=== PATIENT | male | born 1955 | race Caucasian/White ===

== ENCOUNTER 2019-02-02 10:30 | Inpatient (IN) ==
[2019-02-02] MEDS ORDERED: IOPAMIDOL 100 ML BOTTLE IV ONE (10:31)
--- NOTE | 2019-02-02 10:47 | Emergency Department Note ---
SOB HPI - General Chief Complaint: Shortness of Breath/Dyspnea Stated Complaint: Low O2 sats, after procedure Time Seen by Provider: 02/02/19 10:42 Source: patient Mode of arrival: ambulatory Limitations: no limitations - History of Present Illness This gentleman came out of outpatient procedure after having EGD for "stretching his esophagus" and had difficulties with keeping his oxygen at proper levels. He was reported at 90% even on 3 L. He does not typically use oxygen at home. Upon arrival here he was 88% on 3 L. He has felt short of breath for about a week. He is quite sedentary generally. There is been no difference in his limited activity. During his procedure he had Versed and propofol. The reason he is so sedentary is because he has chronic low back pain from previous injury. He does take 3 hydrocodone, 7.5 mg each, 3 times a day. REVIEW OF SYSTEMS: Denies fever, chills. Has some intermittent night sweats which he relates to the pain but has not had any increase in this. No chest pain No cough or wheezing. No nausea or vomiting or abdominal pain. Has chronic low back pain. Has general weakness but this is chronic and no new change. No dizziness. Has had some imbalance for a week. Denies anxiety. Has had depression in the past and continues to take paroxetine but is not sure that he needs it. - Related Data Home Medications Medication Instructions Recorded Confirmed aspirin 81 mg tablet,delayed 81 mg PO QDAY tab 07/05/15 09/04/18 release multivitamin tablet 1 tab PO QDAY tab 07/05/15 09/04/18 Ibuprofen [Motrin] 600 mg PO DAILY 11/01/15 09/04/18 Magnesium Oxide [Magnesium] 400 mg PO DAILY 11/01/15 09/04/18 Niacin 250 mg PO HS 11/01/15 09/04/18 Empagliflozin [Jardiance] 25 mg PO HS 07/13/18 09/04/18 metoprolol tartrate 50 mg tablet 50 mg PO BID 07/13/18 09/04/18 Previous Rx's Medication Instructions Recorded nitroglycerin 0.4 mg sublingual 0.4 mg SUBLINGUAL .COMPLEX PRN #25 10/18/16 tablet tab Monthly Blood Draws #1 each 01/20/17 Permanent Disabled Parking #2 each 03/27/17 metformin ER 500 mg 1,000 mg PO BID #360 tab 11/18/17 tablet,extended release 24hr omeprazole 40 mg capsule,delayed 40 mg PO QDAY #90 cap 01/27/18 release valsartan 320 1 tab PO QDAY #30 tab 01/27/18 mg-hydrochlorothiazide 25 mg tablet testosterone cypionate 200 mg/mL 150 mg IM QWEEK #10 ml 04/02/18 intramuscular oil trazodone 150 mg tablet 150 mg PO QDAY #90 tab 07/17/18 simvastatin 40 mg tablet 40 mg PO QPM #90 tab 07/30/18 pregabalin 75 mg capsule 75 mg PO BID #60 cap 09/17/18 paroxetine 20 mg tablet 20 mg PO QDAY #30 tab 11/09/18 hydrocodone 7.5 mg-acetaminophen 2 tab PO Q4H PRN #300 tab 11/12/18 325 mg tablet Allergies Allergy/AdvReac Type Severity Reaction Status Date / Time iodine [IODINE] AdvReac Intermediate FELT LIKE Verified 02/02/19 10:33 HE WAS BOILING, N/V Penicillins AdvReac Intermediate SWELLING, Verified 02/02/19 10:33 BRUISING morphine AdvReac Mild Nausea Verified 02/02/19 10:33 Bee Stings AdvReac Mild Nausea Uncoded 02/02/19 09:37 Past Medical History - Past Medical History [facility] Narrative: Medical History (Last Updated 02/02/19 @ 10:48 by Dae Chow DO) CAD (coronary artery disease) (Chronic) Heart disease (Chronic) Diabetes mellitus, type II (Chronic) Hypertension, essential (Chronic) Hyperlipidemia (Chronic) Obesity (Chronic) Hemochromatosis (Chronic 03/02/13) Bilateral shoulder pain (Chronic) Chronic pain due to trauma (Chronic) Testosterone deficiency in male (Chronic) Spondylolysis of sacral region (Chronic) Spinal stenosis (Chronic) Scoliosis (Chronic) Radiculopathy, lumbosacral or thoracic (Chronic) Duodenitis without hemorrhage (Chronic 06/13/14) Dysmetabolic syndrome X (Chronic) GERD (gastroesophageal reflux disease) (Chronic) Low back pain (Chronic) Lumbar vertebral fracture (Chronic) Degenerative disc disease (Chronic 09/16/14) Degeneration of thoracic intervertebral disc (Chronic) Degeneration of lumbar or lumbosacral intervertebral disc (Chronic 02/19/13) Hyperplastic colon polyp (Chronic 11/01/15) Pneumonia (Resolved) History of injury (Inactive) Hx of kidney stones Past Surgical History (Last Updated 02/02/19 @ 10:46 by Dae Chow DO) History of surgery (Chronic) H/O colonoscopy (Inactive 11/01/15) History of coronary artery bypass graft (Inactive) History of coronary artery stent placement (Inactive) History of esophagogastroduodenoscopy (Inactive 06/13/14) Family History (Last Reviewed 05/13/18 @ 09:04 by Ric Mcbride MD) Father Hemochromatosis Medical history: Denies: asthma, COPD, DVT, pulmonary embolus Surgical history ED: Reports: non-contributory - Social History smoking status: Current every day smoker Physical Exam Limitations: no limitations General appearance: alert, in no apparent distress, obese Head: atraumatic, normocephalic Eye: Present: EOMI Neck: Present: trachea midline. Absent: lymphadenopathy, thyromegaly Chest: Present: symmetric chest wall rise Respiratory: Present: normal lung sounds bilaterally, other (Somewhat distant lung sounds.). Absent: respiratory distress, wheezes, stridor, accessory muscle use, prolonged expiratory phase Cardiovascular: Present: regular rate, normal rhythm. Absent: systolic murmur, diastolic murmur Abdominal: Present: soft, tenderness (Slight or mild subjectively right upper quadrant.), other (Large and somewhat deformed). Absent: distention, guarding, rebound, rigidity, organomegaly, mass Extremities: Absent: pedal edema, pretibial edema, calf tenderness Back: Absent: spinous process tenderness Neurological: Present: alert, oriented X3 Psychiatric: Present: normal affect, normal mood Skin: Present: warm, dry Course Vital Signs Temperature 99.1 F H 02/02/19 10:30 Pulse Rate 112 H 02/02/19 10:30 Respiratory Rate 22 02/02/19 10:30 Blood Pressure 142/101 02/02/19 10:30 Pulse Oximetry (%) 88 L 02/02/19 10:30 Temperature 98.5 F 02/02/19 12:24 Pulse Rate 108 H 02/02/19 12:10 Respiratory Rate 21 02/02/19 12:10 Blood Pressure 152/92 02/02/19 12:01 Pulse Oximetry (%) 99 02/02/19 12:10 Shortness of Breath/Dyspnea - MDM Narrative Medical decision making narrative: 10:52 AM Hypoxia, unexplained with multiple risk factors for coronary artery disease including past history of same status post CABG, smoker, diabetic, obese, sedentary, hyperlipidemia, hypertension, status post [place], etc. We will do a fairly thorough workup, give him a nebulizer treatment. He has chronic narcotics for chronic pain syndrome but is also on paroxetine which may inhibit his hydrocodone metabolism. Risk of giving him half dose of his usual 3 hydrocodone's in the morning is minimal and will be also given. 1:[address] scan demonstrating extensive reticulonodular interstitial or airspace disease throughout both lungs more severe on the right, etc. new since a CTA 8 months previously, concern for interstitial pneumonia, lymphangitic carcinomatosis and/or sarcoidosis. Of note is that patient's temperature was 99.1 and 99.6. He remained very in teractive and animated in facial expressions, voice, movements while in bed, i.e., not ill or sick appearing. Lactic acid was normal. White count was normal as well. 2:00 PM I spoke with Dr. Kennedy, radio adjuster, who was impressed with this individual's significant CT scan changes and with patient having significant hypoxia, new and these changes, he is willing to stay in the hospital to have further evaluation and/or treatment. 2:16 PM I spoke with hospitalist, Dr. Armas, who kindly accepts this patient. Patient will be sent to the PCU and Dr. Kennedy will consult this evening. - Lab Data Lab results reviewed: Yes I reviewed the patient's lab results. Result diagrams: 02/02/19 10:53 02/02/19 10:53 Lab Results 02/02/19 02/02/19 02/02/19 Range/Units 10:53 10:53 10:53 WBC 10.2 (4.5-11.0) K/mcL RBC 6.65 H (4.50-5.90) M/mcL Hgb 13.2 L (13.5-16.5) g/dL Hct 46.6 (41.0-55.0) % MCV 70.0 L (80.0-100.0) fL MCH 19.9 L (26.0-34.0) pg MCHC 28.4 L (31.0-36.0) g/dL RDW 20.9 H (11.5-14.5) % Plt Count 262 (140-440) K/mcL MPV 10.3 (7.4-10.4) fL Gran % 75.8 (38.0-78.0) % Lymph % (Auto) 17.0 (15.5-49.0) % [place] % (Auto) 5.7 (1.0-12.0) % Eos % (Auto) 0.9 (0.0-7.0) % Baso % (Auto) 0.6 (0.0-2.0) % Gran # 7.8 (1.8-8.0) K/mcL Lymph # (Auto) 1.7 (1.5-4.8) K/mcL [place] # (Auto) 0.6 (0.1-0.9) K/mcL Eos # (Auto) 0.1 (0.0-0.7) K/mcL Baso # (Auto) 0.1 (0.0-0.3) K/mcL D-Dimer (0.00-0.40) ug/ml VBG Lactic Acid (0.5-2.0) mmol/L Sodium 144 (133-145) mmol/L Potassium 4.2 (3.3-5.1) mmol/L Chloride 102 (96-108) mmol/L Carbon Dioxide 28 (22-30) mmol/L Anion Gap 14.0 (8-16) BUN 9 (8-23) mg/dl Creatinine 1.0 (0.7-1.2) mg/dl GFR Calculation 79 Glucose 105 (70-105) mg/dL Calcium 9.0 (8.6-10.4) mg/dl Total Bilirubin 0.5 (0.0-1.0) mg/dL AST 14 (0-37) U/l ALT 8 (0-40) U/l Alkaline Phosphatase 82 (39-117) U/L Total Creatine Kinase 23 L (24-195) IU/L CK-MB (CK-2) 1.2 (0-4.9) ng/ml Troponin T < 0.01 (0-0.03) ng/ml Total Protein 7.0 (5.9-8.4) gm/dL Albumin 3.9 (3.2-5.2) gm/dL Globulin 3.1 (2.2-3.7) gm/dL Albumin/Globulin Ratio 1.3 (1.0-2.3) 02/02/19 02/02/19 Range/Units 10:54 11:02 WBC (4.5-11.0) K/mcL RBC (4.50-5.90) M/mcL Hgb (13.5-16.5) g/dL Hct (41.0-55.0) % MCV (80.0-100.0) fL MCH (26.0-34.0) pg MCHC (31.0-36.0) g/dL RDW (11.5-14.5) % Plt Count (140-440) K/mcL MPV (7.4-10.4) fL Gran % (38.0-78.0) % Lymph % (Auto) (15.5-49.0) % [place] % (Auto) (1.0-12.0) % Eos % (Auto) (0.0-7.0) % Baso % (Auto) (0.0-2.0) % Gran # (1.8-8.0) K/mcL Lymph # (Auto) (1.5-4.8) K/mcL [place] # (Auto) (0.1-0.9) K/mcL Eos # (Auto) (0.0-0.7) K/mcL Baso # (Auto) (0.0-0.3) K/mcL D-Dimer 0.69 H (0.00-0.40) ug/ml VBG Lactic Acid 1.3 (0.5-2.0) mmol/L Sodium (133-145) mmol/L Potassium (3.3-5.1) mmol/L Chloride (96-108) mmol/L Carbon Dioxide (22-30) mmol/L Anion Gap (8-16) BUN (8-23) mg/dl Creatinine (0.7-1.2) mg/dl GFR Calculation Glucose (70-105) mg/dL Calcium (8.6-10.4) mg/dl Total Bilirubin (0.0-1.0) mg/dL AST (0-37) U/l ALT (0-40) U/l Alkaline Phosphatase (39-117) U/L Total Creatine Kinase (24-195) IU/L CK-MB (CK-2) (0-4.9) ng/ml Troponin T (0-0.03) ng/ml Total Protein (5.9-8.4) gm/dL Albumin (3.2-5.2) gm/dL Globulin (2.2-3.7) gm/dL Albumin/Globulin Ratio (1.0-2.3) - Radiology Data Radiology results reviewed: Yes I reviewed the patient's radiology results. - EKG Data EKG results narrative: No acute coronary syndrome findings. This ECG will be read by a digital pre press operator. Disposition Pt seen by [employer]/PA only: No Clinical Impression: Hypoxia, Abnormal CT scan, chest, Cigarette smoker, Chronic pain syndrome, Chronic, continuous use of opioids, Microcytosis Summary: See MEDICAL DECISION MAKING above. Disposition: Xfer As Inpt ([facility]) Condition: Fair Referrals: Ric Mcbride MD [Primary Care Provider] -
[2019-02-02] MEDS ORDERED: IPRATROPIUM/ALBUTEROL 3 ML AMPUL.NEB NEB ONE (11:02)
[2019-02-02] MEDS ORDERED: HYDROCODONE/APAP 7.5/325MG TABLET PO ONE (11:02)
[2019-02-02 11:24] LABS: Basophils # (Auto) 0.1 K/mcL (0.0-0.3); Basophils % (Auto) 0.6 % (0.0-2.0); Eosinophils # (Auto) 0.1 K/mcL (0.0-0.7); Eosinophils % (Auto) 0.9 % (0.0-7.0); Granulocytes % (Auto) 75.8 % (38.0-78.0); Lymphocytes # (Auto) 1.7 K/mcL (1.5-4.8); Mean Corpuscular HGB Conc 28.4 g/dL (31.0-36.0); Monocytes # (Auto) 0.6 K/mcL (0.1-0.9); Monocytes % (Auto) 5.7 % (1.0-12.0); Platelet Count 262 K/mcL (140-440); RBC 6.65 M/mcL (4.50-5.90); Red Cell Distribution Width 20.9 % (11.5-14.5)
[2019-02-02] MEDS ORDERED: 0.9 % SODIUM CHLORIDE 1,000 ML IV ONE ×2 (11:33→11:34)
--- NOTE | 2019-02-02 11:39 | XRay Report ---
CLINICAL INFORMATION: dyspnea COMPARISON: 06/08/2018 FINDINGS: Sternotomy changes noted. The heart is now mildly enlarged. Pulmonary vessels appear normal. There is extensive reticulonodular airspace disease throughout both lungs - new from comparison x-ray eight months ago. No effusions IMPRESSION: Extensive reticulonodular interstitial disease throughout both lungs of uncertain acuity and etiology. It was not seen on the comparison x-ray months ago. This could represent interstitial fibrosis or a variety of infectious or inflammatory conditions. Consider: Chest CT. It could be performed as a CT pulmonary angiogram to concomitantly exclude pulmonary emboli as a cause for dyspnea Interpreted and Authenticated by: Will Chatterjee 02/02/19
[2019-02-02 11:52] LABS: ALT/SGPT 8 U/l (0-40); Albumin 3.9 gm/dL (3.2-5.2); Albumin/Globulin Ratio 1.3 (1.0-2.3); Alkaline Phosphatase 82 U/L (39-117); Blood Urea Nitrogen 9 mg/dl (8-23); Creatine Kinase 23 IU/L (24-195); Creatine Kinase MB 1.2 ng/ml (0-4.9)
--- NOTE | 2019-02-02 13:12 | Cat Scan Report ---
CLINICAL INFORMATION: Hypoxia. 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 COMPARISON: Chest CT 06/12/2018 TECHNIQUE: 80 cc of Isovue-300 were injected intravenously. Using SmartPrep to maximize pulmonary artery opacification, 2.5 mm helical slices were obtained from the lung apices through the lung bases. Following reconstruction, 2.5 mm sagittal, coronal, and axial reformations were processed. The exam was reviewed at mediastinal, lung, and bone windows. The exam was performed using radiation dose optimization techniques including, but not limited to, automated exposure control, adjustment of the mA and/or kV according to patient size and use of iterative reconstruction technique. FINDINGS: This chest CT, eight months prior, extensive reticulonodular interstitial disease has developed throughout both lungs - or severe on the right. Specifically, there is moderate thickening of interlobular and interlobular septa with multiple tiny nodules generally seen in a periseptal peribronchial vascular and perilymphatic distribution. On the left side, there are scattered regions of mosaic perfusion particularly in the anterior segment left upper lobe and the inferior left lower lobe. There are no effusions. Mediastinal windows show mildly enlarged lymph nodes in both kelly, pericarinal, lower paratracheal and AP window region which are new. These range up to 12 mm. The pulmonary arteries are well opacified and normal in contour and caliber without evidence of embolus. Thoracic aorta shows diffuse atherosclerotic plaque but is normal in contour and caliber. The heart is mildly enlarged with extremely heavy calcific plaque in the coronary arteries. Coronary bypass grafts appear grossly normal. Esophagus and thyroid are grossly normal Images through the upper abdomen show vague low-attenuation regions within the lateral segment of the left hepatic lobe (5 cm) and 4.5 cm the medial segment of the left hepatic lobe. There is also a 11 mm low-attenuation lesion anteriorly in the left hepatic lobe. These were not seen on the comparison CTs. The bones and soft tissues the chest wall are otherwise normal IMPRESSION: 1. No evidence of pulmonary embolus 2. Extensive reticulonodular interstitial airspace disease throughout both lungs - more severe on the right with scattered regions of air trapping/mosaic perfusion within the left upper and left lower lobes. Findings are new since a comparison pulmonary CTA eight months ago. Differential diagnosis includes acute interstitial pneumonia (viral or mycoplasma), lymphangitic carcinomatosis and sarcoidosis. Diffuse pulmonary fibrosis seen in IPF or secondary fibrosis from drugs, collagen vascular disease or hypersensitivity pneumonitis are possible, but less likely. Suggest pulmonology consult. 3. Three low attenuation lesions developing in the since CT eight months ago. Suggest: abdomen and pelvic CT in two days, as an outpatient, to evaluate for potential metastases and primary abdominal malignancy Interpreted and Authenticated by: Will Chatterjee 02/02/19
[2019-02-02] MEDS ORDERED: NICOTINE 21 MG PATCH TOPICAL ONE (14:20)
--- NOTE | 2019-02-02 15:13 | Internal Med History&Physical ---
Medical - H&P: HPI Patient information: Note initiated : 02/02/19 at 3:09 pm Service Date, if different from initiated Date: [] Patient: Petar Gonzalez 63 y/o M admitted on for Low O2 Sats, After Procedure. Chief Complaint: [] History of present illness: Mr. Gonzalez is a 63 year old M presents to the emergency room from the endoscopy suit for evaluation of hypoxia. The patient was accompanied by his who is a nurse and his daughter. History obtained predominantly from the patient and his . The patient reports that for the last few days or weeks he has been feeling a bit of, has not been able to take deep breaths, has had cough over the last few days but no significant sputum production. He has reported some weakness. The patient also had some difficulty in swallowing, he has had trouble keeping his food down and felt as if the food was being stuck in mid chest, noted that tablets medications would not go down easily, and felt that sometimes it would come back up. Because of the difficulty in swallowing, he was evaluated by GI and endoscopy was done today, after the endoscopy procedure it was noted that the patient was hypoxic and was unable to be weaned off oxygen he was therefore sent to the emergency room for further evaluation. The patient admits to having some night sweats, but denies any fever chills or weight loss. The patient in the emergency room was afebrile, hemodynamically stable hypoxic, he was on 3 L from the endoscopy suit however was needing up to 6-7 L in the emergency room. His labs show a normal WBC count at 10.2, hemoglobin 13.2 platelets 262, sodium 144 potassium 4.2 bicarbonate 28 creatinine 1 d-dimer 0.62 lactic acid 1.3, ABG done on 6 L of oxygen shows pH of 7.4, PCO2 of 49, PO2 of 59 Chest x-ray done showed reticulonodular pattern infiltrate in the lungs. Chest CT with contrast for pulmonary embolism was done shows diffuse groundglass retic ular nodular pattern in both lungs upper and lower zone, no PE. Also showed mass in the liver. Given the patient's hypoxia the patient has been admitted to the hospital for further management pulmonary has been consulted The patient denies any new headaches, no changes in vision or difficulty in hearing, does have difficulty in swallowing, he has some shortness of breath and difficulty taking deep breaths some cough but denies any chest pain nausea vomiting, does have chronic constipation, no new joint pain skin rashes does have history of depression, denies any joint swelling fevers chills, does have night sweats at times The patient denies any history of incarceration or exposure to tuberculosis, the patient denies any active drug use, the patient is an active smoker, he has dogs in his house but no birds, no history of travel anywhere outside this region recently no history of exposure to Caves the patient does go camping but usually stays in his camper All systems: reviewed and no additional remarkable complaints except as stated (as per HPI rest negative) Medical - H&P: PMH Medical history: Medical History (Last Updated 02/02/19 @ 14:28 by Dae Chow DO) DNR (do not resuscitate) (Chronic) Chronic, continuous use of opioids (Chronic) CAD (coronary artery disease) (Chronic) Heart disease (Chronic) Diabetes mellitus, type II (Chronic) Hypertension, essential (Chronic) Hyperlipidemia (Chronic) Obesity (Chronic) Hemochromatosis (Chronic 03/02/13) Bilateral shoulder pain (Chronic) Chronic pain due to trauma (Chronic) Testosterone deficiency in male (Chronic) Spondylolysis of sacral region (Chronic) Spinal stenosis (Chronic) Scoliosis (Chronic) Radiculopathy, lumbosacral or thoracic (Chronic) Duodenitis without hemorrhage (Chronic 06/13/14) Dysmetabolic syndrome X (Chronic) GERD (gastroesophageal reflux disease) (Chronic) History of kidney stones (Chronic) Low back pain (Chronic) Lumbar vertebral fracture (Chronic) Degenerative disc disease (Chronic 09/16/14) Degeneration of thoracic intervertebral disc (Chronic) Degeneration of lumbar or lumbosacral intervertebral disc (Chronic 02/19/13) Hyperplastic colon polyp (Chronic 11/01/15) Pneumonia (Resolved) History of injury (Inactive) Surgical history: Past Surgical History (Last Updated 02/02/19 @ 10:46 by Dae Chow DO) History of surgery (Chronic) H/O colonoscopy (Inactive 11/01/15) History of coronary artery bypass graft (Inactive) History of coronary artery stent placement (Inactive) History of esophagogastroduodenoscopy (Inactive 06/13/14) Pertinent family history: Family History (Last Reviewed 05/13/18 @ 09:04 by Ric Mcbride MD) Father Hemochromatosis Medical - H&P: Meds Home Medications Medication Instructions Recorded Confirmed Type multivitamin tablet 1 tab PO QDAY tab 07/05/15 02/02/19 History Ibuprofen [Motrin] 600 mg PO DAILY 11/01/15 02/02/19 History Magnesium Oxide [Magnesium] 400 mg PO DAILY 11/01/15 02/02/19 History Niacin 250 mg PO HS 11/01/15 02/02/19 History nitroglycerin 0.4 mg sublingual 0.4 mg SUBLINGUAL .COMPLEX PRN #25 10/18/16 02/02/19 Rx tablet tab Monthly Blood Draws #1 each 01/20/17 09/04/18 Rx metformin ER 500 mg 1,000 mg PO BID #360 tab 11/18/17 02/02/19 Rx tablet,extended release 24hr omeprazole 40 mg capsule,delayed 40 mg PO QDAY #90 cap 01/27/18 02/02/19 Rx release testosterone cypionate 200 mg/mL 150 mg IM QWEEK #10 ml 04/02/18 02/02/19 Rx intramuscular oil Empagliflozin [Jardiance] 25 mg PO HS 07/13/18 02/02/19 History metoprolol tartrate 50 mg tablet 50 mg PO ONCE 07/13/18 02/02/19 History simvastatin 40 mg tablet 40 mg PO QPM #90 tab 07/30/18 02/02/19 Rx Albuterol Sulfate [Ventolin] 2 puff INH Q4HP PRN 02/02/19 02/02/19 History Allopurinol [Zylopriim] 300 mg PO DAILY 02/02/19 02/02/19 History Colchicine [Colcrys] 0.6 mg PO BID 02/02/19 02/02/19 History HYDROcodone/ACETAMINOPHEN [[place] 3 tab PO Q4H PRN 02/02/19 02/02/19 History Plus 7.5-325 mg Tablet] Pregabalin [Lyrica] 75 mg PO BID 02/02/19 02/02/19 History traZODone HCL [Desyrel] 150 mg PO QPM 02/02/19 02/02/19 History Allergies Allergy/AdvReac Type Severity Reaction Status Date / Time iodine [IODINE] AdvReac Intermediate FELT LIKE Verified 02/02/19 10:33 HE WAS BOILING, N/V Penicillins AdvReac Intermediate SWELLING, Verified 02/02/19 10:33 BRUISING morphine AdvReac Mild Nausea Verified 02/02/19 10:33 Bee Stings AdvReac Mild Nausea Uncoded 02/02/19 09:37 Medical - H&P: Exam - Constitutional Vitals: Temp Pulse Resp BP Pulse Ox 98.5 F 103 H 21 146/96 91 02/02/19 12:24 02/02/19 14:25 02/02/19 14:25 02/02/19 14:16 02/02/19 14:25 Exam: GENERAL: The patient is a well-developed, well-nourished in no apparent distress. Is alert and oriented x3. VITAL SIGNS: Reviewed and as noted elsewhere. HEENT: Head is normocephalic and atraumatic. Extraocular muscles are intact. Pupils are equal, round, and reactive to light. Nares appeared normal. Mouth appears any without lesions. Mucous membranes are moist. NECK: Normal to inspection, Supple, No lymphadenopathy or thyromegaly. LUNGS: Air entry equal on both sides, no wheezing, crackles or rhonchi noted. No accessory muscles of respiration HEART: Regular rate and rhythm normal, S1 and S2 heard, no Gallop, S3 or Rub Noted, No Gross murmur heard. ABDOMEN: Soft, nontender, and nondistended. Positive bowel sounds. No hepatosplenomegaly was noted. EXTREMITIES: No cyanosis, clubbing, rash, lesions or edema. NEUROLOGIC: Cranial nerves II through XII are grossly intact. Motor and Sensory System Grossly Intact PSYCHIATRIC: Normal affect, Normal Mood. Appropriate Behavior. SKIN: No ulceration or wounds noted, No jaundice, No rash noted. Medical - H&P: Reslt - Labs CBC & Chem 7: 02/02/19 10:53 02/02/19 10:53 Labs: Short CBC 02/02/19 Range/Units 10:53 WBC 10.2 (4.5-11.0) K/mcL Hgb 13.2 L (13.5-16.5) g/dL Hct 46.6 (41.0-55.0) % Plt Count 262 (140-440) K/mcL BMP 02/02/19 10:53 Sodium 144 Potassium 4.2 Chloride 102 Carbon Dioxide 28 BUN 9 Creatinine 1.0 Glucose 105 Calcium 9.0 Cardiac Enzymes 02/02/19 02/02/19 Range/Units 10:53 10:53 Total Creatine Kinase 23 L (24-195) IU/L CK-MB (CK-2) 1.2 (0-4.9) ng/ml Troponin T < 0.01 (0-0.03) ng/ml Liver Function 02/02/19 Range/Units 10:53 Total Bilirubin 0.5 (0.0-1.0) mg/dL AST 14 (0-37) U/l ALT 8 (0-40) U/l Alkaline Phosphatase 82 (39-117) U/L Albumin 3.9 (3.2-5.2) gm/dL Medical - H&P: A/P - Narrative A/P Narrative: A/P Acute hypoxic respiratory failure Interstitial lung disease vs Atypical Pneumonia Chr smoker Obesity Diabetes Chr pain Esophageal stricture/dysphagia Coronoary Artery disease Hypertension Hyperlipidemia Hemochromatosis LIver tumor Plan Admit to tele Pulmonary consult Pt had neg CT this year, Given h/o food being stuck in the esophagus, aspiration is possible Will send workup to r/o together pathologies, Send for serum fungal panel, TB quantiferon, legionella, mycoplasma, SAAD comprehensive, ANCA panel, c3,c4, CHANTAL level, sputum gram stain culture, sputum fugal culture (induced sputum) Add further testing per pulmonary Pt is on PPI, Speech eval to be done blood cx sent, start on levofloxacin and flagyl for possible pna/atypical pna/aspiration pna coverage Resume home medications, for chr medical conditions. pulmonary toilet wean off oxygen as tolerated Bronchodialators. For the liver tumors, will repeat Ct in 2 days. DVT hep sq DNR code status. Social History - Exercise physical activity: none, additional - Tobacco smoking status: Current every day smoker - Alcohol alcohol intake frequency: a few times a month
[2019-02-02] MEDS ORDERED: NICOTINE 21 MG PATCH ONE (15:20)
[2019-02-02] MEDS ORDERED: NALOXONE HCL 0.4 MG/ML VIAL IV PRN (15:45)
[2019-02-02] MEDS ORDERED: DEXTROSE 50% 50 ML VIAL IV PRN (15:45)
[2019-02-02] MEDS ORDERED: NITROGLYCERIN (PP) 0.4 MG TAB.SUBL (#25) SL PRN (15:45)
[2019-02-02] MEDS ORDERED: metroNIDAZOLE 500 MG/100 ML BAG IV SCH (15:45)
[2019-02-02] MEDS ORDERED: LEVOFLOXACIN 750 MG/150 ML BAG IV SCH (15:45)
[2019-02-02] MEDS ORDERED: ACETAMINOPHEN 325 MG TABLET PO PRN (15:45)
[2019-02-02] MEDS ORDERED: ONDANSETRON 4 MG/2 ML VIAL IV PRN (15:45)
[2019-02-02] MEDS ORDERED: DEXTROSE 31 GM ORAL.SUSP PO PRN (15:45)
[2019-02-02 16:31] LABS: Complement C3 151.7 mg/dl (90-180)
[2019-02-02] MEDS: HYDROCODONE/APAP 7.5/325MG TABLET PO PRN ×2 (16:34→20:39)
[2019-02-02] MEDS: INSULIN LISPRO 1 UNIT/0.01 ML UNIT SQ SCH ×2 (16:34→20:49)
[2019-02-02] MEDS: metroNIDAZOLE 500 MG/100 ML BAG IV SCH ×2 (16:35→22:29)
[2019-02-02 17:00] LABS: Appearance,Urine CLEAR; Bacteria,Urine 0 /hpf (0); Bilirubin,Urine NEG (NEG); Color,Urine YELLOW; Glucose,Urine (UA) >=500 mg/dL (NEG); Leukocyte Esterase,Urine NEG /uL (NEG); Mucus,Urine FEW /hpf (0); Protein,Urine NEG (NEG); Specific Gravity,Urine 1.053 (1.000-1.035); Urine Blood 0.03 mg/dL (<0.03); Urine RBC 27 /hpf (0-1); Urine Squamous Epithelial Cell 0 /hpf (0-4); Urine WBC < 1 /hpf (0-4); Urobilinogen,Urine NEG (NEG)
[2019-02-02] MEDS: LEVOFLOXACIN 750 MG/150 ML BAG IV SCH (17:30)
[2019-02-02] MEDS: IPRATROPIUM/ALBUTEROL 3 ML AMPUL.NEB NEB SCH (19:40)
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
[2019-02-02] MEDS: COLCHICINE 0.6 MG TABLET PO SCH (20:39)
[2019-02-02] MEDS: PREGABALIN 75 MG CAPSULE PO SCH (20:39)
[2019-02-02] MEDS: HEPARIN 5,000 UNIT/ML VIAL SQ SCH (20:40)
[2019-02-02] MEDS: 0.9 % SODIUM CHLORIDE 10 ML SYRINGE IV SCH (20:59)
[2019-02-02] MEDS ORDERED: NON FORMULARY MEDICATION 1 DOSE MISCELL (Magnesium Oxide [Magnesium] 400 MG) PO SCH (21:00)
[2019-02-02] MEDS ORDERED: SIMVASTATIN 40 MG TABLET PO SCH (21:00)
[2019-02-02] MEDS ORDERED: traZODone HCL 150 MG TABLET PO SCH (21:00)
[2019-02-02] MEDS ORDERED: MAGNESIUM OXIDE 400 MG TABLET PO SCH (21:00)
[2019-02-03] MEDS: IPRATROPIUM/ALBUTEROL 3 ML AMPUL.NEB NEB SCH ×4 (01:07→18:55)
[2019-02-03] MEDS: HYDROCODONE/APAP 7.5/325MG TABLET PO PRN ×3 (04:24→12:22)
[2019-02-03] MEDS: metroNIDAZOLE 500 MG/100 ML BAG IV SCH ×3 (05:34→21:38)
[2019-02-03] MEDS: 0.9 % SODIUM CHLORIDE 10 ML SYRINGE IV SCH ×3 (05:34→20:45)
--- NOTE | 2019-02-03 06:15 | Internal Med Progress Note ---
Medical - PN: Subj Patient information: Note initiated : 02/03/19 at 6:12 am Service Date, if different from initiated Date: [] Patient: Petar Gonzalez 63 y/o M admitted on 02/02/19 for Low O2 Sats, After Procedure. Chief Complaint: [] Interval history: Mr. Gonzalez is a 63 year old M presents to the emergency room from the endoscopy suit for evaluation of hypoxia. The patient was accompanied by his who is a nurse and his daughter. History obtained predominantly from the patient and his . The patient reports that for the last few days or weeks he has been feeling a bit of, has not been able to take deep breaths, has had cough over the last few days but no significant sputum production. He has reported some weakness. The patient also had some difficulty in swallowing, he has had trouble keeping his food down and felt as if the food was being stuck in mid chest, noted that tablets medications would not go down easily, and felt that sometimes it would come back up. Because of the difficulty in swallowing, he was evaluated by GI and endoscopy was done today, after the endoscopy procedure it was noted that the patient was hypoxic and was unable to be weaned off oxygen he was therefore sent to the emergency room for further evaluation. The patient admits to having some night sweats, but denies any fever chills or weight loss. The patient in the emergency room was afebrile, hemodynamically stable hypoxic, he was on 3 L from the endoscopy suit however was needing up to 6-7 L in the emergency room. His labs show a normal WBC count at 10.2, hemoglobin 13.2 platelets 262, sodium 144 potassium 4.2 bicarbonate 28 creatinine 1 d-dimer 0.62 lactic acid 1.3, ABG done on 6 L of oxygen shows pH of 7.4, PCO2 of 49, PO2 of 59 Chest x-ray done showed reticulonodular pattern infiltrate in the lungs. Chest CT with contrast for pulmonary embolism was done shows diffuse groundglass reticular nodular pattern in both lungs upper and lower zone, no PE. Also showed mass in the liver. Given the patient's hypoxia the patient has been admitted to the hospital for further management pulmonary has been consulted The patient denies any new headaches, no changes in vision or difficulty in h earing, does have difficulty in swallowing, he has some shortness of breath and difficulty taking deep breaths some cough but denies any chest pain nausea vomiting, does have chronic constipation, no new joint pain skin rashes does have history of depression, denies any joint swelling fevers chills, does have night sweats at times The patient denies any history of incarceration or exposure to tuberculosis, the patient denies any active drug use, the patient is an active smoker, he has dogs in his house but no birds, no history of travel anywhere outside this region recently no history of exposure to [place] the patient does go camping but usually stays in his camper 02/03 Patient seen and examined, no acute overnight events, remains 3-4 L of oxygen. Appears quite well. Lung sounds are unremarkable. Labs unremarkable so far C3- C4 normal RA panel is negative. Repeat labs pending today. I reviewed the case with pulmonology appreciate their input. I reviewed the case with Dr. Del Cid it seems the patient was hypoxic before the endoscopy procedure. 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 Del Cid. Pertinent ROS: Denies headache, dizziness Denies chest pain, palpitations Denies cough or shortness of breath Denies abdominal pain, nausea or vomiting. - Constitutional Vitals: Vital Signs Temp Pulse Resp BP Pulse Ox 98.6 F 108 H 16 146/106 92 02/03/19 04:22 02/02/19 20:00 02/03/19 04:22 02/03/19 04:22 02/03/19 04:33 Period Temp Pulse Resp BP Sys/Dueñas Pulse Ox Last 24 Hr 97.6 F-99.1 F 100-113 16-27 132-162/77-106 88-99 Intake and Output 02/02/19 02/03/19 02/03/19 21:59 05:59 13:59 Intake Total 610 220 Output Total 600 250 Balance 10 -30 Weight 241 lb 6.4 oz Intake & Output: Intake & Output 02/02/19 02/03/19 02/03/19 21:59 05:59 13:59 Intake Total 610 220 Output Total 600 250 Balance 10 -30 Weight 241 lb 6.4 oz Intake: IV 250 100 Oral 360 120 Output: Void Amount 600 250 Other: Meal Dinner snack Percent of Meal Consumed 100% 100% Feeding Ability Assist with Tray Set Up Independent Urine Appearance Clear Clear Urine Color Light Meghana Bright Yellow Urine Odor Strong Exam: Constitutional; Afebrile, cooperative, alert, not in distress. Eyes- No icterus, , No periorbital swelling Ears- Ext ear normal, hearing normal to conversation. Neck- Midline trachea, supple Respiratory system: Air Entry equal on both sides, No crackles or wheezing, no rhonchi. CVS- Rate rhythm regular, S1,S2 heard, no gallop, no rub. Abdomen- Soft nontender abdomen, no organomegaly, no tenderness, no guarding or rigidity, [employer] SALESPERSON- AOOx3, moving all extremities, no gross focal deficit noted. Medical - PN: Obj Da - Labs CBC & Chem 7: 02/02/19 10:53 02/02/19 10:53 Labs: Abnormal Lab Results 02/02/19 02/02/19 02/02/19 15:24 11:02 10:53 RBC Hgb MCV MCH MCHC RDW D-Dimer 0.69 H Total Creatine Kinase 23 L Ur Specific [place] 1.053 H Urine Glucose (UA) >=500 A Urine Ketones 5/tr A Urine Occult Blood 0.03 A Urine RBC 27 H 02/02/19 10:53 RBC 6.65 H Hgb 13.2 L MCV 70.0 L MCH 19.9 L MCHC 28.4 L RDW 20.9 H D-Dimer Total Creatine Kinase Ur Specific [place] Urine Glucose (UA) Urine Ketones Urine Occult Blood Urine RBC Meds: Medications Acetaminophen (Tylenol) 650 mg PO Q6HP PRN PRN Reason: PAIN/FEVER > 101 Hydrocodone Bitart/Acetaminophen ([place] 7.5/325mg) 1 tab PO Q4HP PRN PRN Reason: Pain Last Admin: 02/03/19 04:24 Dose: 1 tab Documented by: Albuterol/Ipratropium (Duoneb) 3 ml NEB Q6HRT REUBEN Last Admin: 02/03/19 01:07 Dose: Not Given Documented by: Allopurinol (Zylopriim) 300 mg PO DAILY REUBEN Colchicine (Colcrys) 0.6 mg PO BID REUBEN Last Admin: 02/02/19 20:39 Dose: 0.6 mg Documented by: Dextrose (Dextrose 50%) 0 ml IV UD PRN PRN Reason: Hypoglycemia Diagnostic Test (Pha) (Accu-Chek) 1 each FS ACHS [facility] Last Admin: 02/02/19 20:49 Dose: 1 each Documented by: Glucose (Insta-Glucose) 15 gm PO PRN PRN PRN Reason: Hypoglycemia Heparin Sodium (Porcine) (Heparin) 5,000 unit SQ Q12 [facility] Last Admin: 02/02/19 20:40 Dose: 5,000 unit Documented by: Metronidazole (Flagyl) 500 mg in 100 mls @ 100 mls/hr IV Q8H [facility]; Protocol Last Admin: 02/03/19 05:34 Dose: 100 mls/hr Documented by: Levofloxacin (Levaquin) 750 mg in 150 mls @ 100 mls/hr IV Q24H [facility]; Protocol Last Infusion: 02/02/19 19:41 Dose: Infused Documented by: Ibuprofen (Motrin) 600 mg PO DAILY [facility] Insulin Human Lispro (Humalog) 0 unit SQ ACHS [facility]; Protocol Last Admin: 02/02/19 20:49 Dose: Not Given Documented by: Magnesium Oxide (Magnesium Oxide) 400 mg PO QHS [facility] Last Admin: 02/02/19 21:01 Dose: Not Given Documented by: Metoprolol Tartrate (Lopressor) 50 mg PO DAILY [facility] Naloxone HCl (Narcan) 0.1 mg IV Q2MIN PRN PRN Reason: Opiate Reversal Nitroglycerin (Nitrostat (Pp)) 0.4 mg SL .COMPLEX PRN PRN Reason: chest pain Ondansetron HCl (Zofran) 4 mg IV Q4HP PRN PRN Reason: Nausea And Vomiting Pantoprazole Sodium (Protonix) 40 mg PO QAMAC [facility] Pregabalin (Lyrica) 75 mg PO BID [facility] Last Admin: 02/02/19 20:39 Dose: 75 mg Documented by: Simvastatin (Zocor) 40 mg PO QPM [facility] Last Admin: 02/02/19 20:39 Dose: 40 mg Documented by: Sodium Chloride (Saline Flush) 10 ml IV Q8 [facility] Last Admin: 02/03/19 05:34 Dose: 10 ml Documented by: Trazodone HCl (Desyrel) 150 mg PO QPM [facility] Last Admin: 02/02/19 20:39 Dose: 150 mg Documented by: Medical - PN: A/P - Time Spent With Patient Total time spent is greater than 50% in coordination of care (as documented) at patient's floor/unit and/or counseling patient: - Narrative A/P Narrative: A/P Acute hypoxic respiratory failure Interstitial lung disease vs Atypical Pneumonia Chr smoker Obesity Diabetes Chr pain Esophageal stricture/dysphagia Coronoary Artery disease Hypertension Hyperlipidemia Hemochromatosis LIver tumor Plan monitor closely for now, Oxygen needs have been stable. Pulmonary consult appreciated Given h/o food being stuck in the esophagus, aspiration is possible, on levoflox and flagyl, for aspiration/atypical pna, mycoplasma is neg, Will send workup to r/o together pathologies, Send for serum fungal panel, TB quantiferon, legionella, SAAD comprehensive, ANCA panel, c3,c4, CHANTAL level, sputum gram stain culture, sputum fungal culture (induced sputum) RA neg, ccp pending. Pt is on PPI, Speech eval to be done blood cx sent, Resume home medications, for chr medical conditions. pulmonary toilet wean off oxygen as tolerated Bronchodialators. For the liver tumors, will repeat Ct in 2 days. With possible biopsy if needed. DVT hep sq DNR code status. Medical - PN: Qual - VTE Deep Vein Thrombosis/Pulmonary Embolism Present on Admission: No
[2019-02-03 06:56] LABS: Basophils # (Auto) 0.1 K/mcL (0.0-0.3); Eosinophils # (Auto) 0.2 K/mcL (0.0-0.7); Eosinophils % (Auto) 1.9 % (0.0-7.0); Granulocytes % (Auto) 81.6 % (38.0-78.0); Lymphocytes # (Auto) 1.2 K/mcL (1.5-4.8); Lymphocytes % (Auto) 11.7 % (15.5-49.0); Mean Cell Volume 69.2 fL (80.0-100.0); Mean Corpuscular HGB Conc 28.9 g/dL (31.0-36.0); Monocytes # (Auto) 0.4 K/mcL (0.1-0.9); Monocytes % (Auto) 3.8 % (1.0-12.0); Platelet Count 273 K/mcL (140-440); RBC 6.23 M/mcL (4.50-5.90); Red Cell Distribution Width 19.3 % (11.5-14.5)
[2019-02-03] MEDS ORDERED: NITROGLYCERIN 0.4 MG TAB.SUBL SL PRN ×2 (07:00→10:40)
[2019-02-03 07:17] LABS: ALT/SGPT 7 U/l (0-40); Albumin 3.5 gm/dL (3.2-5.2); Albumin/Globulin Ratio 1.2 (1.0-2.3); Alkaline Phosphatase 78 U/L (39-117); Bilirubin,Direct < 0.2 mg/dL (0.0-0.3); Blood Urea Nitrogen 9 mg/dl (8-23); Gamma Glutamyl Transpeptidase 35 U/L (8-61)
[2019-02-03] MEDS: INSULIN LISPRO 1 UNIT/0.01 ML UNIT SQ SCH ×4 (07:24→20:47)
[2019-02-03] MEDS ORDERED: PANTOPRAZOLE 40 MG TABLET PO SCH (07:30)
[2019-02-03] MEDS: LEVOFLOXACIN 750 MG/150 ML BAG IV SCH (08:23)
[2019-02-03] MEDS: COLCHICINE 0.6 MG TABLET PO SCH ×2 (08:24→20:46)
[2019-02-03] MEDS: HEPARIN 5,000 UNIT/ML VIAL SQ SCH ×2 (08:24→20:47)
[2019-02-03] MEDS: PREGABALIN 75 MG CAPSULE PO SCH ×2 (08:30→20:46)
[2019-02-03] MEDS ORDERED: METOPROLOL TARTRATE 50 MG TABLET PO SCH (09:00)
[2019-02-03] MEDS ORDERED: ALLOPURINOL 300 MG TABLET PO SCH (09:00)
[2019-02-03] MEDS ORDERED: IBUPROFEN 600 MG TABLET PO SCH (09:00)
[2019-02-03] MEDS ORDERED: NALOXONE HCL 0.4 MG/ML VIAL IV PRN (10:40)
[2019-02-03] MEDS ORDERED: ONDANSETRON 4 MG/2 ML VIAL IV PRN (10:40)
[2019-02-03] MEDS ORDERED: DEXTROSE 31 GM ORAL.SUSP PO PRN (10:40)
[2019-02-03] MEDS ORDERED: DEXTROSE 50% 50 ML VIAL IV PRN (10:40)
--- NOTE | 2019-02-03 12:02 | EGD Procedure Note ---
EGD Procedure Notes - Procedure Information Patient information: Note initiated : 02/03/19 at 12:01 pm Service Date: 02/02/19 Patient: Petar Gonzalez 63 y/o M admitted on 02/02/19 for Low O2 Sats, After Procedure. Pre-op diagnosis general: Dysphagia. Post-Op Diagnosis general: Esophageal dysmotility. Dysphagia. Procedure: Esophogogastroduodenoscopy Procedure Narrative: The procedure, alternatives and risks were discussed with the patient and the patient's questions were answered. With endoscopist-administered intravenous sedation, the Olympus video endoscope was introduced into the esophagus. The esophagus, stomach, and duodenum were examined sequentially. There appeared to be esophageal dysmotility. It is difficult to assess this endoscopically. There is no definite stricture. The gastric mucosa, antrum, pyloric ring, and duodenum appeared normal. A guide wire was placed through the scope. The scope was then withdrawn, leaving the guidewire in place. The esophagus was dilated with an Martiniquais bougie 60 [place]. Assessment: Esophageal dysmotility. Dysphagia.
--- NOTE | 2019-02-03 19:30 | Cat Scan Report ---
CLINICAL INFORMATION: Hypoxia. 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 COMPARISON: Chest CT 06/12/[address] one day prior 02/02/2019 TECHNIQUE: 0.625 mm mm helical slices were obtained from the lung apices through the lung bases. Following reconstruction, 2.5 mm sagittal, coronal, and axial reformations were processed. The exam was reviewed at mediastinal, lung, and bone windows. The exam was performed using radiation dose optimization techniques including, but not limited to, automated exposure control, adjustment of the mA and/or kV according to patient size and use of iterative reconstruction technique. FINDINGS: Since chest CT, yesterday. There is been no change in extensive reticulonodular interstitial disease has developed throughout both lungs - more severe on the right. Specifically, there is moderate thickening of interlobular and interlobular septa with multiple tiny nodules generally seen in a periseptal, peribronchovascular and perilymphatic distribution. On the left side, there are scattered regions of mosaic perfusion particularly in the anterior segment left upper lobe and the inferior left lower lobe. There are no effusions. Mediastinal windows show mildly enlarged lymph nodes in both kelly, pericarinal, lower paratracheal and AP window region which are new. These range up to 12 mm. The pulmonary arteries are well opacified and normal in contour and caliber without evidence of embolus. Thoracic aorta shows diffuse atherosclerotic plaque but is normal in contour and caliber. The heart is mildly enlarged with extremely heavy calcific plaque in the coronary arteries. Coronary bypass grafts appear grossly normal. Esophagus and thyroid are grossly normal Images through the upper abdomen show vague low-attenuation regions within the lateral segment of the left hepatic lobe (5 cm) and 4.5 cm the medial segment of the left hepatic lobe. There is also a 11 mm low-attenuation lesion anteriorly in the left hepatic lobe. These were not seen on the comparison CTs. The bones and soft tissues the chest wall are otherwise normal IMPRESSION: 1. No evidence of pulmonary embolus 2. Extensive reticulonodular interstitial airspace disease throughout both lungs - more severe on the right with scattered regions of air trapping/mosaic perfusion within the left upper and left lower lobes. No change from chest CT performed just one day prior. Differential diagnosis includes acute interstitial pneumonia (viral or mycoplasma), lymphangitic carcinomatosis and sarcoidosis. Diffuse pulmonary fibrosis seen in IPF or secondary fibrosis from drugs, collagen vascular disease or hypersensitivity pneumonitis are possible, but less likely. Suggest pulmonology consult. 3. Three low attenuation lesions developing in liver the since CT the months ago. Suggest: abdomen and pelvic CT in two days, as an outpatient, to evaluate for potential metastases and primary abdominal malignancy Interpreted and Authenticated by: Will Chatterjee 02/03/19
[2019-02-03] MEDS: MAGNESIUM OXIDE 400 MG TABLET PO SCH (20:46)
[2019-02-03] MEDS: SIMVASTATIN 40 MG TABLET PO SCH (20:46)
[2019-02-03] MEDS: traZODone HCL 150 MG TABLET PO SCH (20:46)
[2019-02-04] MEDS: IPRATROPIUM/ALBUTEROL 3 ML AMPUL.NEB NEB SCH ×4 (00:26→19:52)
[2019-02-04] MEDS: HYDROCODONE/APAP 7.5/325MG TABLET PO PRN ×3 (04:15→20:36)
[2019-02-04] MEDS: metroNIDAZOLE 500 MG/100 ML BAG IV SCH ×2 (05:32→14:45)
[2019-02-04] MEDS: 0.9 % SODIUM CHLORIDE 10 ML SYRINGE IV SCH ×2 (05:34→14:45)
[2019-02-04] MEDS: IBUPROFEN 600 MG TABLET PO SCH ×2 (05:40→10:03)
[2019-02-04] MEDS: PANTOPRAZOLE 40 MG TABLET PO SCH (07:11)
[2019-02-04 07:35] LABS: Basophils # (Auto) 0.1 K/mcL (0.0-0.3); Eosinophils # (Auto) 0.1 K/mcL (0.0-0.7); Eosinophils % (Auto) 1.5 % (0.0-7.0); Granulocytes % (Auto) 78.3 % (38.0-78.0); Lymphocytes # (Auto) 1.3 K/mcL (1.5-4.8); Lymphocytes % (Auto) 13.7 % (15.5-49.0); Mean Cell Volume 70.8 fL (80.0-100.0); Monocytes # (Auto) 0.5 K/mcL (0.1-0.9); Monocytes % (Auto) 5.5 % (1.0-12.0); Platelet Count 256 K/mcL (140-440); RBC 6.14 M/mcL (4.50-5.90)
[2019-02-04] MEDS: INSULIN LISPRO 1 UNIT/0.01 ML UNIT SQ SCH ×4 (07:36→20:59)
[2019-02-04 07:54] LABS: ALT/SGPT 8 U/l (0-40); Albumin 3.6 gm/dL (3.2-5.2); Albumin/Globulin Ratio 1.2 (1.0-2.3); Alkaline Phosphatase 78 U/L (39-117); Bilirubin,Direct < 0.2 mg/dL (0.0-0.3); Blood Urea Nitrogen 8 mg/dl (8-23); Gamma Glutamyl Transpeptidase 37 U/L (8-61); Uric Acid 6.3 mg/dL (2.5-8.0)
[2019-02-04] MEDS: ALLOPURINOL 300 MG TABLET PO SCH (09:12)
[2019-02-04] MEDS: COLCHICINE 0.6 MG TABLET PO SCH ×2 (09:12→20:37)
[2019-02-04] MEDS: LEVOFLOXACIN 750 MG/150 ML BAG IV SCH (09:13)
[2019-02-04] MEDS: METOPROLOL TARTRATE 50 MG TABLET PO SCH (09:13)
[2019-02-04] MEDS: HEPARIN 5,000 UNIT/ML VIAL SQ SCH ×2 (09:13→20:37)
[2019-02-04] MEDS: PREGABALIN 75 MG CAPSULE PO SCH ×2 (09:13→20:36)
[2019-02-04] MEDS ORDERED: NICOTINE 21 MG PATCH TOPICAL ONE (10:06)
[2019-02-04] MEDS ORDERED: IOPAMIDOL 100 ML BOTTLE IV ONE (11:10)
--- NOTE | 2019-02-04 12:58 | Cat Scan Report ---
CLINICAL INFORMATION: Possible liver mass COMPARISON: 09/18/[address] TECHNIQUE: Following enteric contrast, 80 cc of Isovue-300 were injected intravenously, and 60 seconds later, 0.625 mm helical slices were obtained from the mid heart through the subtrochanteric regions. Following reconstruction, 2.5 mm sagittal, coronal and axial reformatted images were processed and reviewed at bone, lung and soft tissue windows. Five minutes later, 0.625 mm helical slices were obtained from the mid heart through the kidneys and viewed at soft tissue windows.The exam was performed using radiation dose optimization techniques including, but not limited to, automated exposure control, adjustment of the mA and/or kV according to patient size and use of iterative reconstruction technique. FINDINGS: Lung bases again show extensive reticulonodular interstitial disease in the right lower lobe and, to a lesser extent, the left lower lobe. This was not seen on the 2006 study. There are no effusions.Visualized heart is mildly enlarged. Images through the abdomen show a large (7 x 4.5 cm) irregular low-attenuation mass in the medial segment of the left hepatic lobe and a moderate (1.8 x 3.6 cm) low-attenuation mass in the lateral segment left hepatic lobe. In addition, there are two lesions in the subdiaphragmatic left lobe, each approximately 10 mm, and a 14 mm lesion anteriorly in the lateral segment of the left lobe. All lesions are new from the thousand [address] CT[address] Metastases from an unknown primary carcinoma is suspected. Multiple small stones layer dependently within the gallbladder. Gallbladder and bile ducts are, otherwise, normal CBD is 5 mm. The pancreas, including the pancreatic duct, and spleen are normal in size, configuration and attenuation without focal lesion. There is a 20 mm simple cyst in the superior pole of the the left kidney is a 6 mm simple cyst inferior pole left kidney. Two nonobstructing stones, both less than 5 mm, seen inferior calyx of the right kidney. The abdominal aorta is normal in diameter (18 millimeters). There is extremely heavy fibrofatty plaque in the posterior wall of the infrarenal abdominal aorta resulting in 50% luminal narrowing. The aortic branches and many scattered as well as flack, but no leak significant stenosis There is no free air, no free fluid or adenopathy. Images of the pelvis show prostatic, seminal vesicles and urinary bladder are normal. Sigmoid diverticulosis is present but no evidence of diverticulitis. The remainder of the colon appendix, small bowel and stomach are normal. Bone window show no evidence of metastatic disease. Severe L3-4 degenerative disease are new from prior study. IMPRESSION: 1. Irregular low-attenuation lesions within the liver - new since the 2006 CT. They are suspicious for metastatic disease from unknown primary carcinoma. Suggest: Ultrasound-guided percutaneous core biopsy 2. Multiple small stones within the gallbladder. Gallbladder and bile ducts otherwise normal. 3. Two 5 mm nonobstructing stones - inferior calyx left kidney 4. Heavy atherosclerotic plaque posterior wall of the infrarenal abdominal aorta resulting in a 50% aortic stenosis. 5. Severe L3-4 degenerative disc disease new since 2006: Interpreted and Authenticated by: Will Chatterjee 02/04/19
--- NOTE | 2019-02-04 13:20 | Internal Med Progress Note ---
Medical - PN: Subj Patient information: Note initiated : 02/04/19 at 1:18 pm Service Date, if different from initiated Date: [] Patient: Petar Gonzalez 63 y/o M admitted on 02/02/19 for Low O2 Sats, After Procedure. Chief Complaint: [] Interval history: Mr. Gonzalez is a 63 year old M presents to the emergency room from the endoscopy suit for evaluation of hypoxia. The patient was accompanied by his who is a nurse and his daughter. History obtained predominantly from the patient and his . The patient reports that for the last few days or weeks he has been feeling a bit of, has not been able to take deep breaths, has had cough over the last few days but no significant sputum production. He has reported some weakness. The patient also had some difficulty in swallowing, he has had trouble keeping his food down and felt as if the food was being stuck in mid chest, noted that tablets medications would not go down easily, and felt that sometimes it would come back up. Because of the difficulty in swallowing, he was evaluated by GI and endoscopy was done today, after the endoscopy procedure it was noted that the patient was hypoxic and was unable to be weaned off oxygen he was therefore sent to the emergency room for further evaluation. The patient admits to having some night sweats, but denies any fever chills or weight loss. The patient in the emergency room was afebrile, hemodynamically stable hypoxic, he was on 3 L from the endoscopy suit however was needing up to 6-7 L in the emergency room. His labs show a normal WBC count at 10.2, hemoglobin 13.2 platelets 262, sodium 144 potassium 4.2 bicarbonate 28 creatinine 1 d-dimer 0.62 lactic acid 1.3, ABG done on 6 L of oxygen shows pH of 7.4, PCO2 of 49, PO2 of 59 Chest x-ray done showed reticulonodular pattern infiltrate in the lungs. Chest CT with contrast for pulmonary embolism was done shows diffuse groundglass reticular nodular pattern in both lungs upper and lower zone, no PE. Also showed mass in the liver. Given the patient's hypoxia the patient has been admitted to the hospital for further management pulmonary has been consulted The patient denies any new headaches, no changes in vision or difficulty in h earing, does have difficulty in swallowing, he has some shortness of breath and difficulty taking deep breaths some cough but denies any chest pain nausea vomiting, does have chronic constipation, no new joint pain skin rashes does have history of depression, denies any joint swelling fevers chills, does have night sweats at times The patient denies any history of incarceration or exposure to tuberculosis, the patient denies any active drug use, the patient is an active smoker, he has dogs in his house but no birds, no history of travel anywhere outside this region recently no history of exposure to [place] the patient does go camping but usually stays in his camper 02/03 Patient seen and examined, no acute overnight events, remains 3-4 L of oxygen. Appears quite well. Lung sounds are unremarkable. Labs unremarkable so far C3- C4 normal RA panel is negative. Repeat labs pending today. I reviewed the case with pulmonology appreciate their input. I reviewed the case with Dr. Del Cid it seems the patient was hypoxic before the endoscopy procedure. 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 Del Cid. 02/04 Pt seen examined, no acute overnight events, CT chest report unchanged from previous, PUlmonary to follow (pulm had requested a CT without contrast), CT abdomen and pelvis shows liver lesions, suspicious of malignancy, will get US guided biopsy if possible today Plan of care reviewed with the patient and his , it appears now that the lung findings are likely to be carcinomatosis spread . cultures neg so far. Pertinent ROS: Denies headache, dizziness Denies chest pain, palpitations Denies cough or shortness of breath Denies abdominal pain, nausea or vomiting. - Constitutional Vitals: Vital Signs Temp Pulse Resp BP Pulse Ox 97.1 F 95 H 18 111/59 94 02/04/19 08:00 02/04/19 12:50 02/04/19 12:50 02/04/19 08:00 02/04/19 12:50 Period Temp Pulse Resp BP Sys/Dueñas Pulse Ox Last 24 Hr 97.1 F-98.0 F 78-97 16-22 111-144/59-93 91-94 Intake and Output 02/03/19 02/04/19 02/04/19 21:59 05:59 13:59 Intake Total 820 340 100 Output Total 700 200 Balance 120 140 100 Weight 245 lb 8 oz Intake & Output: Intake & Output 02/03/19 02/04/19 02/04/19 21:59 05:59 13:59 Intake Total 820 340 100 Output Total 700 200 Balance 120 140 100 Weight 245 lb 8 oz Intake: Nourishment/Supplement quantity 360 (ml) IV 100 100 100 Oral 360 240 Output: Void Amount 700 200 Other: Meal Dinner Percent of Meal Consumed 95 Feeding Ability Independent Urine Appearance Clear Clear Urine Color Dark Meghana Dark Yellow Urine Odor Normal Strong # Voids 1 Exam: Constitutional; Afebrile, cooperative, alert, not in distress. Respiratory system: Air Entry equal on both sides, No crackles or wheezing, no rhonchi. CVS- Rate rhythm regular, S1,S2 heard, no gallop, no rub. Abdomen- Soft nontender abdomen, no organomegaly, no tenderness, no guarding or rigidity, WHEEL ADJUSTER- AOOx3, moving all extremities, no gross focal deficit noted. Medical - PN: Obj Da - Labs CBC & Chem 7: 02/04/19 05:10 02/04/19 05:10 Labs: Abnormal Lab Results 02/04/19 02/04/19 02/03/19 05:10 05:10 05:50 RBC 6.14 H Hgb 12.2 L MCV 70.8 L MCH 19.8 L MCHC 28.0 L RDW 21.0 H Gran % 78.3 H Lymph % (Auto) 13.7 L Gran # Lymph # (Auto) 1.3 L D-Dimer Glucose 144 H 115 H Calcium 8.5 L 8.5 L Phosphorus 4.6 H Total Creatine Kinase Triglycerides 175 H Ur Specific [place] Urine Glucose (UA) Urine Ketones Urine Occult Blood Urine RBC 02/03/19 02/02/19 02/02/19 05:50 15:24 11:02 RBC 6.23 H Hgb 12.5 L MCV 69.2 L MCH 20.0 L MCHC 28.9 L RDW 19.3 H Gran % 81.6 H Lymph % (Auto) 11.7 L Gran # 8.5 H Lymph # (Auto) 1.2 L D-Dimer 0.69 H Glucose Calcium Phosphorus Total Creatine Kinase Triglycerides Ur Specific [place] 1.053 H Urine Glucose (UA) >=500 A Urine Ketones 5/tr A Urine Occult Blood 0.03 A Urine RBC 27 H 02/02/19 02/02/19 10:53 10:53 RBC 6.65 H Hgb 13.2 L MCV 70.0 L MCH 19.9 L MCHC 28.4 L RDW 20.9 H Gran % Lymph % (Auto) Gran # Lymph # (Auto) D-Dimer Glucose Calcium Phosphorus Total Creatine Kinase 23 L Triglycerides Ur Specific [place] Urine Glucose (UA) Urine Ketones Urine Occult Blood Urine RBC Meds: Medications Acetaminophen (Tylenol) 650 mg PO Q6HP PRN PRN Reason: PAIN/FEVER > 101 Hydrocodone Bitart/Acetaminophen ([place] 7.5/325mg) 1 tab PO Q4HP PRN PRN Reason: Pain Last Admin: 02/04/19 10:03 Dose: 1 tab Documented by: Albuterol/Ipratropium (Duoneb) 3 ml NEB Q6HRT [facility] Last Admin: 02/04/19 07:41 Dose: 3 ml Documented by: Allopurinol (Zylopriim) 300 mg PO DAILY [facility] Last Admin: 02/04/19 09:12 Dose: 300 mg Documented by: Colchicine (Colcrys) 0.6 mg PO BID [facility] Last Admin: 02/04/19 09:12 Dose: 0.6 mg Documented by: Dextrose (Dextrose 50%) 0 ml IV UD PRN PRN Reason: Hypoglycemia Diagnostic Test (Pha) (Accu-Chek) 1 each FS [facility] Last Admin: 02/04/19 11:28 Dose: 1 each Documented by: Glucose (Insta-Glucose) 15 gm PO PRN PRN PRN Reason: Hypoglycemia Heparin Sodium (Porcine) (Heparin) 5,000 unit SQ Q12 [facility] Last Admin: 02/04/19 09:13 Dose: 5,000 unit Documented by: Levofloxacin (Levaquin) 750 mg in 150 mls @ 100 mls/hr IV Q24H [facility]; Protocol Last Admin: 02/04/19 09:13 Dose: 100 mls/hr Documented by: Metronidazole (Flagyl) 500 mg in 100 mls @ 100 mls/hr IV Q8H [facility]; Protocol Last Infusion: 02/04/19 06:43 Dose: Infused Documented by: Ibuprofen (Motrin) 600 mg PO DAILY [facility] Last Admin: 02/04/19 10:03 Dose: Not Given Documented by: Insulin Human Lispro (Humalog) 0 unit SQ [facility]; Protocol Last Admin: 02/04/19 11:28 Dose: 3 units Documented by: Magnesium Oxide (Magnesium Oxide) 400 mg PO QHS [facility] Last Admin: 02/03/19 20:46 Dose: 400 mg Documented by: Metoprolol Tartrate (Lopressor) 50 mg PO DAILY [facility] Last Admin: 02/04/19 09:13 Dose: 50 mg Documented by: Naloxone HCl (Narcan) 0.1 mg IV Q2MIN PRN PRN Reason: Opiate Reversal Nitroglycerin (Nitrostat) 0.4 mg SL Q5M PRN PRN Reason: Chest Pain Ondansetron HCl (Zofran) 4 mg IV Q4HP PRN PRN Reason: Nausea And Vomiting Pantoprazole Sodium (Protonix) 40 mg PO QAMAC [facility] Last Admin: 02/04/19 07:11 Dose: 40 mg Documented by: Pregabalin (Lyrica) 75 mg PO BID [facility] Last Admin: 02/04/19 09:13 Dose: 75 mg Documented by: Simvastatin (Zocor) 40 mg PO QPM [facility] Last Admin: 02/03/19 20:46 Dose: 40 mg Documented by: Sodium Chloride (Saline Flush) 10 ml IV Q8 [facility] Last Admin: 02/04/19 05:34 Dose: 10 ml Documented by: Trazodone HCl (Desyrel) 150 mg PO QPM [facility] Last Admin: 02/03/19 20:46 Dose: 150 mg Documented by: Medical - PN: A/P - Time Spent With Patient Total time spent is greater than 50% in coordination of care (as documented) at patient's floor/unit and/or counseling patient: - Narrative A/P Narrative: A/P Acute hypoxic respiratory failure Interstitial lung disease vs Atypical Pneumonia Chr smoker Obesity Diabetes Chr pain Esophageal stricture/dysphagia Coronoary Artery disease Hypertension Hyperlipidemia Hemochromatosis LIver tumor/ metastasis Plan monitor closely for now, Oxygen needs have been stable. Pulmonary consult appreciated, requested to repeat CT without contrast, to get echo and PFT yesterday, these have been ordered The patient Abdomen CT shows liver lesions, usg guided biopsy today, hold off on PFT till AM, will review with pulm the need for same if malignancy is considered. The patient has elevated afp level at 39, primary HCC? patient does have h/o hemochromatosis, Plan of care reviwed with patient and his (who is a nurse) rest of workup pending Pending serum fungal panel, TB quantiferon, legionella, SAAD comprehensive, ANCA panel, c3,c4, CHANTAL level, sputum gram stain culture, sputum fungal culture (induced sputum) RA neg, ccp pending. Pt is on PPI, Speech eval appreciated blood cx sent, Resume home medications, for chr medical conditions. pulmonary toilet wean off oxygen as tolerated, looks DVT hep sq DNR code status. Medical - PN: Qual - VTE Deep Vein Thrombosis/Pulmonary Embolism Present on Admission: No
[2019-02-04 14:25] LABS: NIL 0.01 IU/mL; Quant TB Gold + 4T Incubated NEGATIVE (NEGATIVE)
[2019-02-04] MEDS ORDERED: LORazepam 2 MG/ML VIAL IV ONE (15:59)
[2019-02-04] MEDS ORDERED: LIDOCAINE 1% 20 ML VIAL SQ ONE (16:53)
--- NOTE | 2019-02-04 17:13 | Ultrasound Report ---
CLINICAL INFORMATION: Multiple hypoechoic liver lesions suspicious for metastases from unknown primary carcinoma TECHNIQUE: The procedure and risks including possibility of bleeding, infection, bile leak, bowel perforation and inadequate tissue sampling requiring re-biopsying were explained to the patient. He understood and wished to proceed. The patient been given 1 mg Ativan orally for sedation prior to procedure. With the patient supine position, the largest lesion, in the medial segment left hepatic lobe, was nurse ldr localized. The skin overlying the lesion was marked, prepped and locally anesthetized with 1% lidocaine to the level of the lesion using a 25-gauge spinal needle. A 17-gauge Temno guide needle was advanced under sonographic guidance into the anterior aspect of the largest lesion. Through this guide, an 18-gauge Temno needle was used to obtain four core tissue samples under ultrasound guidance. The tissue was sent in formalin to pathology. The needle was washed with normal sterile saline drain each pass. Delayed Postprocedure scanning shows no hemorrhage or other complication. Patient tolerated procedure well. IMPRESSION: Percutaneous ultrasound-guided core biopsy of the largest of several hepatic lesions located in the medial segment left hepatic lobe. Pathology pending. No apparent complication. The procedure was well tolerated Interpreted and Authenticated by: Will Chatterjee 02/04/19
[2019-02-04] MEDS: MAGNESIUM OXIDE 400 MG TABLET PO SCH (20:36)
[2019-02-04] MEDS: traZODone HCL 150 MG TABLET PO SCH (20:37)
[2019-02-04] MEDS: SIMVASTATIN 40 MG TABLET PO SCH (20:37)
[2019-02-05] MEDS: 0.9 % SODIUM CHLORIDE 10 ML SYRINGE IV SCH ×3 (00:02→16:14)
[2019-02-05] MEDS: metroNIDAZOLE 500 MG/100 ML BAG IV SCH ×3 (00:02→16:08)
[2019-02-05] MEDS: IPRATROPIUM/ALBUTEROL 3 ML AMPUL.NEB NEB SCH ×3 (02:46→16:08)
[2019-02-05] MEDS: ACETAMINOPHEN 325 MG TABLET PO PRN ×2 (02:53→10:06)
[2019-02-05] MEDS: HYDROCODONE/APAP 7.5/325MG TABLET PO PRN ×2 (02:54→07:16)
[2019-02-05 06:59] LABS: Basophils # (Auto) 0 K/mcL (0.0-0.3); Basophils % (Auto) 0.4 % (0.0-2.0); Eosinophils # (Auto) 0.2 K/mcL (0.0-0.7); Granulocytes % (Auto) 75.3 % (38.0-78.0); Lymphocytes # (Auto) 1.5 K/mcL (1.5-4.8); Lymphocytes % (Auto) 17.2 % (15.5-49.0); Mean Cell Volume 70.5 fL (80.0-100.0); Mean Corpuscular HGB Conc 28.6 g/dL (31.0-36.0); Monocytes # (Auto) 0.4 K/mcL (0.1-0.9); Monocytes % (Auto) 5.1 % (1.0-12.0); Platelet Count 228 K/mcL (140-440); RBC 5.86 M/mcL (4.50-5.90); Red Cell Distribution Width 20.9 % (11.5-14.5)
[2019-02-05] MEDS: PANTOPRAZOLE 40 MG TABLET PO SCH (07:04)
[2019-02-05 07:10] LABS: ALT/SGPT 9 U/l (0-40); Albumin 3.3 gm/dL (3.2-5.2); Albumin/Globulin Ratio 1.2 (1.0-2.3); Alkaline Phosphatase 68 U/L (39-117); Bilirubin,Direct < 0.2 mg/dL (0.0-0.3); Blood Urea Nitrogen 8 mg/dl (8-23); Gamma Glutamyl Transpeptidase 36 U/L (8-61); Uric Acid 5.7 mg/dL (2.5-8.0)
[2019-02-05] MEDS: INSULIN LISPRO 1 UNIT/0.01 ML UNIT SQ SCH ×2 (07:10→13:11)
[2019-02-05] MEDS: IBUPROFEN 600 MG TABLET PO SCH (08:22)
[2019-02-05] MEDS: HEPARIN 5,000 UNIT/ML VIAL SQ SCH (08:22)
[2019-02-05] MEDS: COLCHICINE 0.6 MG TABLET PO SCH (08:23)
[2019-02-05] MEDS: PREGABALIN 75 MG CAPSULE PO SCH (08:23)
[2019-02-05] MEDS: METOPROLOL TARTRATE 50 MG TABLET PO SCH (08:24)
[2019-02-05] MEDS: ALLOPURINOL 300 MG TABLET PO SCH (08:24)
[2019-02-05] MEDS: LEVOFLOXACIN 750 MG/150 ML BAG IV SCH (10:05)
--- NOTE | 2019-02-05 11:39 | Discharge Summary ---
Medical - DS: Prov Patient information: Note initiated : 02/05/19 at 11:35 am Service Date, if different from initiated Date: [] Patient: Petar Gonzalez 63 y/o M admitted on 02/02/19 for Low O2 Sats, After Procedure. Chief Complaint: [] Date of admission: 02/02/19 15:40 Discharge date: 02/05/19 Primary care physician: Ric Mcbride Consults: 02/02/19 13:56 Consult to Physician [CONS] Stat Comment: Consulting Provider: Selvin Kennedy Reason For Exam: Physician to Consult 02/02/19 14:16 Consult to Physician [CONS] Stat Comment: Consulting Provider: Shama Armas Reason For Exam: Physician to Consult Discharging clinician: Shama Armas Medical - DS: Meds - Discharge Medications Prescriptions: Levofloxacin [Levaquin] 750 mg PO DAILY #3 tab metroNIDAZOLE [Flagyl] 500 mg PO TID #9 tab Active and Home Medications: Home Medications multivitamin tablet 1 tab PO QDAY tab 07/05/15 [History Confirmed 02/02/19 Last Taken 03/12/16 06:30] Ibuprofen [Motrin] 1 - 4 tab PO Q4HP PRN 11/01/15 [History Confirmed 02/04/19 Last Taken 03/12/16 06:30] Magnesium Oxide [Magnesium] 400 mg PO DAILY 11/01/15 [History Confirmed 02/02/19 Last Taken 03/12/16 06:30] Niacin 250 mg PO HS 11/01/15 [History Confirmed 02/02/19 Last Taken 03/12/16 06:30] nitroglycerin 0.4 mg sublingual tablet 0.4 mg SUBLINGUAL .COMPLEX PRN #25 tab 10/18/16 [Rx Confirmed 02/02/19 Last Taken Unknown] metformin ER 500 mg tablet,extended release 24hr 1,000 mg PO BID #360 tab 11/18/17 [Rx Confirmed 02/02/19 Last Taken Unknown] omeprazole 40 mg capsule,delayed release 40 mg PO QDAY #90 cap 01/27/18 [Rx Confirmed 02/02/19 Last Taken Unknown] testosterone cypionate 200 mg/mL intramuscular oil 150 mg IM QWEEK #10 ml 04/02 [Rx Confirmed 02/02/19 Last Taken Unknown] Empagliflozin [Jardiance] 25 mg PO HS 07/13/18 [History Confirmed 02/02/19 Last Taken Unknown] metoprolol tartrate 50 mg tablet 50 mg PO ONCE 07/13/18 [History Confirmed 02/02/19 Last Taken Unknown] simvastatin 40 mg tablet 40 mg PO QPM #90 tab 07/30/18 [Rx Confirmed 02/02/19 Last Taken Unknown] Albuterol Sulfate [Ventolin] 2 puff INH Q4HP PRN 02/02/19 [History Confirmed 02/02/19 Last Taken Unknown] Allopurinol [Zylopriim] 300 mg PO DAILY 02/02/19 [History Confirmed 02/02/19 Last Taken Unknown] Colchicine [Colcrys] 0.6 mg PO BID 02/02/19 [History Confirmed 02/02/19 Last Taken Unknown] HYDROcodone/ACETAMINOPHEN [Lorcet Plus 7.5-325 mg Tablet] 3 tab PO Q4H PRN 02/02/19 [History Confirmed 02/02/19 Last Taken Unknown] Pregabalin [Lyrica] 75 mg PO BID 02/02/19 [History Confirmed 02/02/19 Last Taken Unknown] traZODone HCL [Desyrel] 150 mg PO QPM 02/02/19 [History Confirmed 02/02/19 Last Taken Unknown] Medical - DS: Hosp Hospital course: Mr. Gonzalez is a 63 year old M presents to the emergency room from the endoscopy suit for evaluation of hypoxia. The patient was accompanied by his who is a nurse and his daughter. History obtained predominantly from the patient and his . The patient reports that for the last few days or weeks he has been feeling a bit of, has not been able to take deep breaths, has had cough over the last few days but no significant sputum production. He has reported some weakness. The patient also had some difficulty in swallowing, he has had trouble keeping his food down and felt as if the food was being stuck in mid chest, noted that tablets medications would not go down easily, and felt that sometimes it would come back up. Because of the difficulty in swallowing, he was evaluated by GI and endoscopy was done today, after the endoscopy procedure it was noted that the patient was hypoxic and was unable to be weaned off oxygen he was therefore sent to the emergency room for further evaluation. The patient admits to having some night sweats, but denies any fever chills or weight loss. The patient in the emergency room was afebrile, hemodynamically stable hypoxic, he was on 3 L from the endoscopy suit however was needing up to 6-7 L in the emergency room. His labs show a normal WBC count at 10.2, hemoglobin 13.2 platelets 262, sodium 144 potassium 4.2 bicarbonate 28 creatinine 1 d-dimer 0.62 lactic acid 1.3, ABG done on 6 L of oxygen shows pH of 7.4, PCO2 of 49, PO2 of 59 Chest x-ray done showed reticulonodular pattern infiltrate in the lungs. Chest CT with contrast for pulmonary embolism was done shows diffuse groundglass reticular nodular pattern in both lungs upper and lower zone, no PE. Also showed mass in the liver. Given the patient's hypoxia the patient has been admitted to the hospital for further management pulmonary has been consulted The patient denies any new headaches, no changes in vision or difficulty in hearing, does have difficulty in swallowing, he has some shortness of breath and difficulty taking deep breaths some cough but denies any chest pain nausea vomiting, does have chronic constipation, no new joint pain skin rashes does have history of depression, denies any joint swelling fevers chills, does have night sweats at times The patient denies any history of incarceration or exposure to tuberculosis, the patient denies any active drug use, the patient is an active smoker, he has dogs in his house but no birds, no history of travel anywhere outside this region recently no history of exposure to [place] the patient does go camping but usually stays in his camper 02/03 Patient seen and examined, no acute overnight events, remains 3-4 L of oxygen. Appears quite well. Lung sounds are unremarkable. Labs unremarkable so far C3- C4 normal RA panel is negative. Repeat labs pending today. I reviewed the case with pulmonology appreciate their input. I reviewed the case with Dr. Del Cid it seems the patient was hypoxic before the endoscopy procedure. 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 Del Cid. 02/04 Pt seen examined, no acute overnight events, CT chest report unchanged from previous, PUlmonary to follow (pulm had requested a CT without contrast), CT abdomen and pelvis shows liver lesions, suspicious of malignancy, will get US guided biopsy if possible today Plan of care reviewed with the patient and his , it appears now that the lung findings are likely to be carcinomatosis spread . cultures neg so far. 02/05 Patient seen and examined, no acute overnight events, patient is stable on 4 L of oxygen no significant improvement since admission. Patient underwent biopsy of the liver lesions yesterday, hemoglobin trended stable, patient has no pain at the site of biopsy. Stable for discharge Will complete the course of antibiotics after discharge Advised to follow-up with PCP and pulmonary as outpatient He will need referral to oncology once the biopsy results are known. He does have elevated afp levels, and h/o hemochromatosis, which makes him high risk for Hepatocellular carcinoma I have not made any changes to his chronic home medication list. At the time of discharge patient is on 4L oxygen, oxygen saturation on room air is 88%, on ambulation it drops down to 82% Oxygen saturation on 4L oxygen is 95 percent Indication for Oxygen, C 78.00 , metastatic malignancy/ unknown malignancy of the lung Discharge diagnosis: Hypoxia, liver malignancy - Time Spent with Patient Total time spent providing and/or coordinating discharge services: Greater than 30 minutes Medical - DS: Exam - Constitutional Vitals: Vital Signs Temp Pulse Pulse Resp BP Pulse Ox 02/05/19 07:59 97.7 F 18 129/78 95 02/05/19 07:44 92 H 18 95 02/05/19 07:39 91 H 18 02/05/19 03:19 97.5 F 92 H 22 143/82 91 02/05/19 00:00 98.4 F 86 22 152/83 99 02/04/19 20:01 88 16 02/04/19 20:00 94 02/04/19 19:39 97.9 F 80 22 148/84 94 02/04/19 16:00 97.1 F 84 22 148/77 96 02/04/19 13:58 80 18 98 02/04/19 13:56 72 18 02/04/19 12:50 95 H 18 94 02/04/19 12:00 98.5 F 77 22 151/73 96 Intake and Output 02/04/19 02/05/19 02/05/19 21:59 05:59 13:59 Intake Total 1380 550 Output Total 900 Balance 480 550 Intake: IV 100 250 Oral 1280 300 Output: Void Amount 900 Other: Meal Lunch Percent of Meal Consumed 100% Weight 248 lb Additional comments: Constitutional; Afebrile, cooperative, alert, not in distress. Eyes- No icterus, , No periorbital swelling Ears- Ext ear normal, hearing normal to conversation. Neck- Midline trachea, supple Respiratory system: Air Entry equal on both sides, No crackles or wheezing, no rhonchi. CVS- Rate rhythm regular, S1,S2 heard, no gallop, no rub. Abdomen- Soft nontender abdomen, no organomegaly, no tenderness, no guarding or rigidity, [employer]- AOOx3, moving all extremities, no gross focal deficit noted. Medical - DS: Data Labs on day of discharge: Labs from last 24 hours 02/05/19 02/05/19 02/04/19 05:08 05:08 20:50 WBC 8.6 RBC 5.86 Hgb 11.8 L 11.7 L Hct 41.3 41.0 MCV 70.5 L MCH 20.2 L MCHC 28.6 L RDW 20.9 H Plt Count 228 MPV 9.7 Gran % 75.3 Lymph % (Auto) 17.2 [place] % (Auto) 5.1 Eos % (Auto) 2.0 Baso % (Auto) 0.4 Gran # 6.5 Lymph # (Auto) 1.5 [place] # (Auto) 0.4 Eos # (Auto) 0.2 Baso # (Auto) 0 Sodium 140 Potassium 4.1 Chloride 101 Carbon Dioxide 29 Anion Gap 10.0 BUN 8 Creatinine 1.0 GFR Calculation 79 Glucose 131 H Uric Acid 5.7 Calcium 8.3 L Phosphorus 4.0 Magnesium 1.9 Total Bilirubin 0.4 Direct Bilirubin < 0.2 GGT 36 AST 16 ALT 9 Alkaline Phosphatase 68 Lactate Dehydrogenase 194 Total Protein 6.0 Albumin 3.3 Globulin 2.7 Albumin/Globulin Ratio 1.2 Triglycerides 107 Alpha Fetoprotein TB (QFT) Gold In Tube TB Test Mitogen - Nil TB Test Antigen - Nil TB Test CD4 Ag - Nil 02/04/19 02/02/19 13:52 11:02 WBC RBC Hgb Hct MCV MCH MCHC RDW Plt Count MPV Gran % Lymph % (Auto) [place] % (Auto) Eos % (Auto) Baso % (Auto) Gran # Lymph # (Auto) [place] # (Auto) Eos # (Auto) Baso # (Auto) Sodium Potassium Chloride Carbon Dioxide Anion Gap BUN Creatinine GFR Calculation Glucose Uric Acid Calcium Phosphorus Magnesium Total Bilirubin Direct Bilirubin GGT AST ALT Alkaline Phosphatase Lactate Dehydrogenase Total Protein Albumin Globulin Albumin/Globulin Ratio Triglycerides Alpha Fetoprotein 39.6 H TB (QFT) Gold In Tube Negative TB Test Mitogen - Nil 7.40 TB Test Antigen - Nil 0.00 TB Test CD4 Ag - Nil 0.01 Preliminary micro results at discharge 02/02/19 15:12 Blood Culture - Preliminary Blood 02/02/19 15:01 Blood Culture - Preliminary Blood Medical - DS: A/P - Patient/Caregiver Discharge Instructions Activity: increase activity as tolerated Diet: Consistent Carbohydrate Additional Instructions: Follow up with your PCP in 1 week, talk to your PCP regarding a referral to an oncologist of your choice. WE do not have the results of the biopsy yet, your pcp will review the results with you. Fallow up with Dr Kennedy in 2-3 weeks for follow up on your lung findings. Go to the ER if worsening symptoms, chest pain, shortness of breath or any other acute concern. Prescriptions: Levofloxacin [Levaquin] 750 mg PO DAILY #3 tab metroNIDAZOLE [Flagyl] 500 mg PO TID #9 tab - Follow up Plan Follow up with: Ric Mcbride MD [Primary Care Provider] - (Please call Friday and scheduled a hospital follow up to be seen in one week.) Selvin Kennedy MD [Physician] - (Please call Friday and schedule a hospital follow up to be seen in 2-3 weeks.) Disposition: Home, Self-Care Prognosis: Fair Rehab Potential: Fair I certify that the patient requires SNF services: No Overall status at discharge: patient is not back to baseline Medical - DS: Qual - VTE Deep Vein Thrombosis/Pulmonary Embolism Present on Admission: No
[2019-02-08 07:15] LABS: Angiotensin Converting Enzyme 23 U/L (9-67)
[2019-02-08 07:16] LABS: ANCA SCREEN NEGATIVE (NEGATIVE)
[2019-02-08 09:38] LABS: DNA AB(DS) Crithidia, IFA NEGATIVE (NEGATIVE); Rhuematoid Factor <14 IU/mL (<14); SM Antibody <1.0 NEG AI (SEE COMMENT); Scl-70 <1.0 NEG AI (SEE COMMENT)
--- NOTE | 2019-02-09 13:18 | Surgical Pathology Report ---
HISTOLOGY SPECIMEN MICROSCOPIC DIAGNOSIS LIVER, NEEDLE BIOPSY: -- POORLY DIFFERENTIATED NON-SMALL CELL CARCINOMA, CONSISTENT WITH CK7+ ADENOCARCINOMA. (SEE COMMENT) (ACP:davin) COMMENT: The morphologic appearance and immunohistochemical staining pattern confirms the presence of infiltrative adenocarcinoma. The differential diagnosis for CK7+ malignant tumors includes hepatobiliary (intra and extrahepatic), pancreas, upper gastrointestinal, lung, breast and salivary gland. Clinical and radiographic correlation is recommended. MICROSCOPIC DESCRIPTION Examination of the liver needle core biopsies demonstrate diffuse areas of infiltrative carcinoma with associated inflammation and desmoplasia. The tumor has a few acinar structures with infiltrative nests and cords of cells and occasional cribriform nests. Cytologically, the cells are small to moderate in size with round to oval nuclei, granular chromatin and a few prominent nucleoli. The cells have clear, aaron and pale eosinophilic cytoplasms and a few cytoplasmic vacuoles. Areas of uninvolved hepatic parenchyma are present that have mild macro/microvesicular steatosis and reactive change. No bile stasis or lymphovascular invasion is seen. An immunohistochemical panel is performed (adequate technical control). Pancytokeratin plus: Positive CK7: Positive Hepatocyte, CD10: Negative MOC-31: positive CD34: Negative CK20, CDX2: Negative NKX3.1: Negative TTF-1, Napsin-A: Negative RCC: Negative (ACP:davin) Some of the tests reported here may not have been cleared or approved by the [place]. Food and Drug Administration (FDA). However, the FDA has determined that such clearance or approval is not necessary. Pursuant to the requirements of CLIA, this laboratory has established and verified the accuracy and precision of all tests, and additional information about these tests is available upon request. All technical controls are adequate. CLINICAL HISTORY Multiple liver lesions, (?) metatasis. GROSS DESCRIPTION Received in formalin designated as liver biopsy, are five cores of pink-oconnell to aaron-oconnell tissue ranging in size from 0.4 up to 1.1 cm in length and less than 0.1 cm in diameter. Totally submitted - two cassettes. (KGW:davin) Electronically Signed by: Carroll Wang M.D.
[2019-02-11 10:54] LABS: Histoplasma Mycelial AB <1:8 (<1:8)
== END 2019-02-05 14:30 | disposition home or self-care (01) | DRG 91 ==
LOC: ED 10:30 → ICU 15:40 → MEDSUR 02-03 10:14
PROVIDERS: ADMIT Internal Medicine; ATTEND Internal Medicine